=== PATIENT | female | born 1970 | race Caucasian/White ===

== ENCOUNTER 2023-05-05 13:12 | Inpatient (IN) ==
[2023-05-05 13:41] LABS: Basophils # (auto) 0.06 K/uL (0.00-0.20); Basophils % (auto) 0.7 %; Eosinophils % (auto) 1.1 %; Hematocrit (blood only) 43.4 % (37.0-47.0); Hemoglobin 14.7 g/dl (12.0-16.0); Immature Granulocytes # (auto) 0.02 K/uL (0.01-0.20); Immature Granulocytes % (auto) 0.2 %; Lymphocytes # (auto) 3.03 K/uL (1.20-3.40); Lymphocytes % (auto) 33.7 %; Mean Corpuscular Hemoglobin 32.9 pg (25.0-34.0); Mean Corpuscular Hgb Conc 33.9 g/dL (32.0-36.0); Mean Corpuscular Volume 97.1 fL (80.0-100.0); Mean Platelet Volume 10.8 fL (9.4-12.4); Monocytes # (auto) 0.55 K/uL (0.11-0.59); Monocytes % (auto) 6.1 %; Neutrophils # (auto) 5.22 K/uL (1.40-6.50); Neutrophils % (auto) 58.2 %; Platelet Count 266 K/uL (130-400); RDW Coefficient of Variation 15.9 % (11.5-14.5); RDW Standard Deviation 57.5 fL (36.4-46.3); Red Blood Count 4.47 M/uL (4.20-5.40); White Blood Count 8.98 K/ul (4.8-10.8)
[2023-05-05 13:55] LABS: Albumin Globulin Ratio 1.2 (0.9-2); Albumin Level 3.8 gm/dl (3.4-5.0); BUN Creatinine Ratio 10.4 (10-20); Calcium 9.4 mg/dl (8.6-10.3); Creatinine Clr Calc Pharmacy 52.9 ml/min; Est GFR (African American) 77.2 ml/min; Est GFR (Non-African American) 66.6 ml/min; Globulin 3.1 gm/dl (2.5-4.0); Potassium 3.2 mmol/L (3.5-5.1); Total Protein 6.9 gm/dl (6.0-8.3)
[2023-05-05 14:14] LABS: INR 1.2 (0.9-1.1); Partial Thromboplastin Ratio 0.9; Partial Thromboplastin Time 26.2 Seconds (21.0-31.0)
--- NOTE | 2023-05-05 14:16 | XRay Report ---
XR chest 1V not portable HISTORY: 53 years-old Female Chest pain, nonspecific acute shortness breath with chest pain COMPARISON: 04/02/2023 TECHNIQUE: PA view of the chest FINDINGS: Cardiac silhouette is enlarged. Pulmonary vascular congestion with interstitial coarsening. Layering pleural effusions have increased in size from prior. Bibasilar consolidation, progressively worsened on the left. Bones appear grossly intact. IMPRESSION: 1. Cardiomegaly with pulmonary edema. 2. Increased size of the layering pleural effusions with bibasilar consolidation. ACT 112: Negative or not required by law. The above report was generated using voice recognition software. It may contain grammatical, syntax o r spelling errors. Electronically signed by: Rui Victor M.D. 05/05/2023 2:15 PM
--- NOTE | 2023-05-05 14:23 | Emergency Department Note ---
Impression & Plan Acute HFrEF (heart failure with reduced ejection fraction) ED Provider Note NAME: RAMÓN COLLAZO AGE: 53 SEX: F : 1970 ARRIVES VIA: Walk-In INFORMANT: Patient, ED PROVIDER(S): Bonnie Christian MD CHIEF COMPLAINT: Shortness of breath HPI: This is a 53-year-old female presenting for suspected heart failure. Patient was seen here about 1 month ago, and left without being seen. That time she had elevated troponin levels, possible pneumonia on x-ray. She then presented to [facility] emergency department where she received CT of the chest with no PE but did show pulmonary vascular congestion. She treated with antibiotics [facility] emergency department and discharge. She then saw primary care who noticed that she had shortness of breath, edema and chest tightness. She had BNP that was elevated at 34,000, chest x-ray revealing small bilateral pleural effusions started on furosemide 5 mg. General cardiology consulted on emergent echo today. This echo shows severely reduced EF, less than 20%. She states she was sent in by the recording studio intern for this concern. ROS: See above HPI for pertinent positives & negatives. A total of 10 systems reviewed and were otherwise negative. PAST MEDICAL HISTORY: See Below PAST SURGICAL HISTORY: See Below FAMILY HISTORY: See Below SOCIAL HISTORY: See Below HOME MEDICATIONS: See Below ALLERGIES: See Below VITALS: See Below PHYSICAL EXAMINATION: General: resting comfortably in no acute distress Head: Normocephalic and atraumatic Eyes: Normal inspection, extraocular muscles intact Ear, nose, throat: Normal external exam Neck: Normal range of motion Respiratory: Crackles at the bases Cardiovascular: Regular rate/rhythm, no murmur GI: soft, nontender, no guarding or rebound Extremities: nontender, moves all extremities, 2+ pitting edema to bilateral lower extremities Neuro: The patient awake and alert, appropriately conversive, no focal deficits, symmetric faces Skin: Warm, dry, and intact MEDICAL DECISION MAKING: This is a 53-year-old female presenting for suspected heart failure. External records reviewed including Janine Alejandro cardiology note on 05/05 which shows concerns for heart failure. Reviewed external echo report from same date showing LV ejection fraction less than 20%, severe diffuse left ventricular hypokinesis, left ventricle cavity is moderate dilated, concentric left ventricular wall thickening mildly increased, severe tricuspid regurg, moderate mitral regurg, right ventricle is normal in size with normal wall RV function. Patient is tachycardic here however not hypoxic, no shortness of breath at rest, no pleurisy at rest. Patient has had symptoms for about 6 weeks. Low concern for PE as echo does not show any right strain Chest x-ray independently interpreted by me as bilateral pleural effusions, no pneumothorax, no focal consolidations. Patient required admission for her severe severe reduced EF. Triage Nursing notes reviewed. Prior medical records reviewed Vital Signs: reviewed and remarkable for no significant abnormalities Differential diagnosis: Heart failure, ACS, low concern for dissection or PE ER treatment provided: See below Diagnostics interpreted by me: ECG: ECG independently interpreted by me with sinus tachycardia, rate of 120, right axis deviation, normal UT, normal QRS, normal QTc, no ST segment elevations consistent with STEMI criteria, poor baseline, difficult to interpret Cardiac Monitoring: An order was placed for continuous cardiac monitoring. The monitor shows a rate of 105 with sinus rhythm Laboratory studies: As stated above and show below. Imaging studies: See below. Radiographic imaging was reviewed by myself Consultation(s): None Past Med/Surg History Medical History (Updated 05/05/23 @ 19:24 by Bonnie Christian MD) HTN (hypertension) Surgical History (Updated 05/05/23 @ 16:19 by Nahomy Costa PA-C) Hx of ectopic Hx of breast reduction, elective Hx of wisdom tooth extraction Family History (Updated 05/05/23 @ 16:19 by Nahomy Costa PA-C) Father Hypertension HLD (hyperlipidemia) Mother Diabetes Hypertension Rheumatoid arthritis Osteoarthritis Social History (Updated 05/05/23 @ 16:47 by Nahomy Costa PA-C) Smoking Status: Current every day smoker Tobacco Type: Cigars Second Hand Exposure: No; Do You Dip or Chew Tobacco: No; Tobacco Cessation Education Requested by Patient: No Hx Alcohol Use: No Hx Substance Use: No Preferred Language: Urdu 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 Beliefs That Will Affect Care: None Current Living Situation: Spouse Other Information That Helps Us Care for You: No Feels Safe at Home: Yes Safety Concerns: Feels Safe At This Time Assistive Devices: None Allergies Allergies Allergy/AdvReac Type Severity Reaction Status Date / Time Sulfa (Sulfonamide AdvReac Mild Vomiting Unverified 05/05/23 16:25 Antibiotics) Home Meds Home Medications Medication Instructions Recorded Confirmed albuterol sulfate 90 mcg/actuation 2 puff inhalation Q6H PRN SOB 05/05/23 05/05/23 aerosol inhaler benzonatate 200 mg capsule 200 mg PO TID PRN Cough 05/05/23 05/05/23 furosemide 20 mg tablet 20 mg PO QAM 05/05/23 05/05/23 Results & Data (ED) Vital Signs Vital Signs - 24 hr 05/05/23 13:15 05/05/23 14:12 05/05/23 14:16 Temperature 36.5 C Temperature Source Temporal Artery Scan Pulse Rate 117 H 109 H Pulse Rate [Apical] 109 H Respiratory Rate 20 22 Respiratory Effort / Characteristics Non-Labored Spontaneous Respiratory Depth Normal Blood Pressure 142/98 H Blood Pressure [Right Arm] 141/105 H Blood Pressure Mean 112 Blood Pressure Mean [Right Arm] 117 Pulse Oximetry 99 97 Oxygen Delivery Method Room Air Room Air Sepsis Recent Fever Within 48 Hours No Sepsis New/Unexplained Change in Mental Status No Sepsis Action Taken by Nursing No Action Required 05/05/23 14:16 05/05/23 14:16 Temperature Temperature Source Pulse Rate 109 H Pulse Rate [Apical] Respiratory Rate 22 Respiratory Effort / Characteristics Respiratory Depth Blood Pressure Blood Pressure [Right Arm] Blood Pressure Mean Blood Pressure Mean [Right Arm] Pulse Oximetry 97 97 Oxygen Delivery Method Room Air Room Air Sepsis Recent Fever Within 48 Hours Sepsis New/Unexplained Change in Mental Status Sepsis Action Taken by Nursing Laboratory Data 05/05/23 13:22 05/05/23 13:22 Lab Results 05/05/23 Range/Units 13:22 WBC 8.98 (4.8-10.8) K/ul RBC 4.47 (4.20-5.40) M/uL Hgb 14.7 (12.0-16.0) g/dl Hct 43.4 (37.0-47.0) % MCV 97.1 (80.0-100.0) fL MCH 32.9 (25.0-34.0) pg MCHC 33.9 (32.0-36.0) g/dL RDW Std Deviation 57.5 H (36.4-46.3) fL RDW Coeff of Bert 15.9 H (11.5-14.5) % Plt Count 266 (130-400) K/uL MPV 10.8 (9.4-12.4) fL Immature Gran % (Auto) 0.2 % Neut % (Auto) 58.2 % Lymph % (Auto) 33.7 % Johnston % (Auto) 6.1 % Eos % (Auto) 1.1 % Baso % (Auto) 0.7 % Neut # (Auto) 5.22 (1.40-6.50) K/uL Lymph # (Auto) 3.03 (1.20-3.40) K/uL Johnston # (Auto) 0.55 (0.11-0.59) K/uL Eos # (Auto) 0.10 (0.00-0.50) K/uL Baso # (Auto) 0.06 (0.00-0.20) K/uL Immature Gran # (Auto) 0.02 (0.01-0.20) K/uL PT 13.0 H (9.0-12.0) Seconds INR 1.2 H (0.9-1.1) APTT 26.2 (21.0-31.0) Seconds PTT Ratio 0.9 Sodium 133 L (136-145) mmol/L Potassium 3.2 L (3.5-5.1) mmol/L Chloride 94 L (98-107) mmol/L Carbon Dioxide 30 (21-32) mmol/L Anion Gap 9 (3-11) BUN 10 (6-23) mg/dl Creatinine 0.96 (0.6-1.2) mg/dl Est Cr Clr Drug Dosing 52.9 ml/min Est GFR ( Amer) 77.2 ml/min Est GFR (Non-Af Amer) 66.6 ml/min BUN/Creatinine Ratio 10.4 (10-20) Glucose 102 H (70-99(Fasting)) mg/dl Calcium 9.4 (8.6-10.3) mg/dl Total Bilirubin 1.0 (0.2-1.0) mg/dl AST 16 (13-39) U/L ALT 11 (7-52) U/L Alkaline Phosphatase 98 (34-104) U/L Troponin I High Sens 26.4 H (0-14) pg/ml B-Natriuretic Peptide 3939 H (0-100) pg/ml Total Protein 6.9 (6.0-8.3) gm/dl Albumin 3.8 (3.4-5.0) gm/dl Globulin 3.1 (2.5-4.0) gm/dl Albumin/Globulin Ratio 1.2 (0.9-2) Administered Medications Discontinued Medications Furosemide (Furosemide 40 Mg/4 Ml Vial) 40 mg IV NOW STA Stop: 05/05/23 15:53 Last Admin: 05/05/23 16:52 Dose: 40 mg Documented By: MITZY Co-signed By: AM Potassium Chloride (Potassium Chloride Crtab 20 Meq Tabcr) 40 meq PO NOW STA Stop: 05/05/23 15:07 Last Admin: 05/05/23 15:09 Dose: 40 meq Documented By: NRB Imaging Data Radiologist's Impression: Chest X-Ray 05/05/23 13:18 XR chest 1V not portable HISTORY: 53 years-old Female Chest pain, nonspecific acute shortness breath with chest pain COMPARISON: 04/02/2023 TECHNIQUE: PA view of the chest FINDINGS: Cardiac silhouette is enlarged. Pulmonary vascular congestion with interstitial coarsening. Layering pleural effusions have increased in size from prior. Bibasilar consolidation, progressively worsened on the left. Bones appear grossly intact. IMPRESSION: 1. Cardiomegaly with pulmonary edema. 2. Increased size of the layering pleural effusions with bibasilar consolidation. ACT 112: Negative or not required by law. The above report was generated using voice recognition software. It may contain grammatical, syntax or spelling errors. Electronically signed by: Rui Victor M.D. 05/05/2023 2:15 PM Discharge Plan Visit Data Chief Complaint: Shortness of Breath/Dyspnea Stated Complaint: FLUID BUILD UP, SOB, EDEMA LEGS ED Provider: Bonnie Christian Discharge Problem: Acute HFrEF (heart failure with reduced ejection fraction) Patient Disposition: Admitted As Inpatient Discharge Instructions Interventions: ED Discharge Assessment Last Done: 05/05/23 16:55
[2023-05-05 14:50] LABS: Troponin I High Sensitivity 26.4 pg/ml (0-14)
[2023-05-05] MEDS ORDERED: POTASSIUM CHLORIDE CRTAB 20 MEQ TABCR PO STA (15:06)
--- NOTE | 2023-05-05 15:13 | Electrocardiogram Report ---
Test Reason : Blood Pressure : / mmHG Vent. Rate : 120 BPM Atrial Rate : 120 BPM P-R Int : 134 ms QRS Dur : 078 ms QT Int : 316 ms P-R-T Axes : 000 140 085 degrees QTc Int : 446 ms Sinus tachycardia Right axis deviation Possible Old Anterior infarct (cited on or before 02-APR-2023) Nonspecific T wave abnormality Lateral leads Abnormal ECG When compared with ECG of 02-APR-2023 17:13, No significant change Confirmed by Samy Garcia ([id number]) on 05/05/2023 3:13:24 PM Referred By: Confirmed By:Samy Garcia
[2023-05-05] MEDS ORDERED: FUROSEMIDE 40 MG/4 ML VIAL IV STA (15:52)
--- NOTE | 2023-05-05 16:21 | History & Physical Report ---
Date of Service May 05, 2023 Assessment & Plan (1) Acute HFrEF (heart failure with reduced ejection fraction): (2) Tobacco abuse disorder: (3) HTN (hypertension): (4) Hypokalemia: Plan This is a 53-year-old female who has a significant past medical history of chronic tobacco use who presents to ED at the referral of cardiology. 6 weeks of worsened GEORGE and lower extremity edema outpatient echo: EF < 20%, severe diffuse left ventricular hypokinesis, right ventricular cavity moderately dilated, left atrium moderately enlarged, moderate MR, severe TR, dilated IVC with reduced collapsibility Acute HFrEF HTN Elevated Troponin - demand ischemia admit to PCU consult cardiology give lasix 40mg IV x 1 now and then daily daily weights, strict intake/output FR to 1800ml will hold off on further guideline directed therapies for acute HFrEF at this time until volume status more optimized currently tachycardiac which likely is physiologic in setting of reduced EF TSH obtain in OP setting elevated at 8, but free T4 normal a1c 6.3, lipid panel trig 122, total chol 149, LDL 96 NPO in a.m. in event procedure warranted Pre diabetes a1c in outpatient setting 6.3 diet/lifestyle modifications Chronic tobacco abuse last smoked yesterday, hoping to abstain continue to encourage cessation DVT ppx: Lovenox x 1 this evening, will not ordered schedule until determine if pt to undergo cardiac cath in a.m., further chemical prophylaxis to be determined by rounding provider in a.m. FULL CODE PCP: Nilton Tee - pt has not yet established care with her so she will need close f/u as outpatient Dispo: PCU History of Present Illness Chief Complaint: Referred by cardiology, GEORGE x 6 weeks. Primary Care Provider: Crescencio Lou MD This is a 53-year-old female who has a significant past medical history of chronic tobacco use who presents to ED at the referral of cardiology. Prior to her current recent medical events she has not followed with a primary care provider. She has smoked on and off for the last 30 years. She also drinks alcohol approximately 2 nights weekly. She denies any illicit drug use. She was seen and evaluated in the ED on 04/02/2023 secondary to cough, chest discomfort and shortness of breath. Patient had chest x-ray and blood work performed but left AGAINST MEDICAL ADVICE due to long wait times. During this evaluation patient had a mildly elevated troponin, chest x-ray concerning for cardiomegaly, pulmonary vascular congestion and she had a mild leukocytosis. There was also possible concern for pneumonia. ED provider contacted patient and prescribed her course of cephalosporin and doxycycline. She has completed 2 courses of antibiotics. She also was seen at [facility] ER in [place] approximately 2 weeks later. Per cardiology report records were reviewed, D- dimer was elevated and she underwent chest CT which was negative for PE but did demonstrate cardiomegaly and bilateral pleural effusions. At this point time she was again treated with antibiotics. Patient does not provide much history as she states, "you can refer to my records I have already been over this." Per records from her cardiology visit today she has complained of shortness of breath for the last 6 weeks. She has a chronic cough and did not think anything of this due to smoking but this has also worsened. She also started coughing up blood. In the ED she also has been having increased lower extremity swelling. She denies any orthopnea, PND or weight change. She recently has been trying to limit her sodium intake. She denies any prior history of any cardiac disease, although she was told many years ago she had high blood pressure. She has never taken any medication for this. She does monitor her blood pressure at home and typically is between 140s and 160s although she thinks her blood pressure cuff may be off. She was recently prescribed Lasix 20 mg daily prior to cardiac consultation being performed. She went for cardiology consultation today and echocardiogram was performed which revealed an LVEF of less than 20%, severe diffuse left ventricular hypokinesis, left ventricular cavity mildly dilated, left atrium moderately dilated, moderate MR and severe tricuspid regurg is present. She states ever since taking the Lasix 20 mg daily she has noted slight decrease in her leg swelling. She has not been taking any potassium with her Lasix. She denies any recent viral illness or traumatic life event. Significant other is at beside who also helps elicit hx. in ED patient was hemodynamically stable although significantly hypertensive. Initial troponin elevated at 26. She was mildly hypokalemic with potassium of 3.2. Outpatient lab work from [facility] was reviewed. BNP was 34,317, triglyceride 122, cholesterol 149, HDL 29, LDL 96, BUN 16, creatinine 1.1, A1c 6.3, TSH 8.44 with normal T4free. Her last tobacco use was yesterday. At rest she currently feels fine. She denies SOB at rest, chest pain, f/c/s, lightheaded, dizziness, n/v/d, abd pain. Allergies Allergy/AdvReac Type Severity Reaction Status Date / Time Sulfa (Sulfonamide AdvReac Mild Vomiting Unverified 05/05/23 16:25 Antibiotics) Home Medications Medication Instructions Recorded Confirmed Type albuterol sulfate 90 mcg/actuation 2 puff inhalation Q6H PRN SOB 05/05/23 05/05/23 History aerosol inhaler benzonatate 200 mg capsule 200 mg PO TID PRN Cough 05/05/23 05/05/23 History furosemide 20 mg tablet 20 mg PO QAM 05/05/23 05/05/23 History Past Med/Surg History Medical History (Updated 05/05/23 @ 19:24 by Bonnie Christian MD) HTN (hypertension) Surgical History (Updated 05/05/23 @ 16:19 by Nahomy oCsta PA-C) Hx of ectopic Hx of breast reduction, elective Hx of wisdom tooth extraction Family History (Updated 05/05/23 @ 16:19 by Nahomy Costa PA-C) Father Hypertension HLD (hyperlipidemia) Mother Diabetes Hypertension Rheumatoid arthritis Osteoarthritis Social History (Updated 05/05/23 @ 16:47 by Nahomy Costa PA-C) Smoking Status: Current every day smoker Tobacco Type: Cigars Second Hand Exposure: No; Do You Dip or Chew Tobacco: No; Tobacco Cessation Education Requested by Patient: No Hx Alcohol Use: No Hx Substance Use: No Preferred Language: Spanish [employer]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 Beliefs That Will Affect Care: None Current Living Situation: Spouse Other Information That Helps Us Care for You: No Feels Safe at Home: Yes Safety Concerns: Feels Safe At This Time Assistive Devices: None Review of Systems Review of Systems: All systems reviewed & are unremarkable except as noted in HPI & below Physical Exam Physical Exam: Constitutional: WD/WN, vitals as above, NAD, sitting up in bed, pleasant, conversing easily Head: Normocephalic, Atraumatic Eyes: PERRL, conjunctivae normal, anicteric sclerae ENMT: external ear and nose normal, oropharynx normal Neck: trachea midline, no thyromegaly normal visual inspection Respiratory: normal respiratory effort, lungs clear to auscultation but decreased with crackles and b/l bases, no wheeze, or rhonchi. Normal insp/exp effort, no accessory muscle use Cardiovascular: RRR, no murmur, +2 pretibial and ankle edema, no venous stasis changes Vessels: + JVD or carotid bruit , no hepatojugular reflux noted Chest: normal inspection of chest Abdomen: normal bowel sounds, soft, nontender, no hepatosplenomegaly Musculoskeletal: no cyanosis or clubbing, extremities motor strength 5/5 Skin: no rashes, warm and dry normal turgor Neurologic: PERRL, EOMI, accommodation nl, no face palsy, no dysarthria CN's II-XI intact bilaterally and moves all extremities Psychiatric: A+Ox3, euthymic affect Lymphatic: no cervical or axillary lymphadenopathy : deferred Results & Data Results & Data Vital Signs (Past 12 Hours) Vital Signs Temp Pulse Pulse Resp BP BP Pulse Ox 05/05/23 14:16 109 H 22 97 05/05/23 14:16 97 05/05/23 14:16 109 H 22 141/105 H 97 05/05/23 14:12 109 H 05/05/23 13:15 36.5 C 117 H 20 142/98 H 99 O2 Del Method 05/05/23 14:16 Room Air 05/05/23 14:16 Room Air 05/05/23 14:16 Room Air 05/05/23 14:12 05/05/23 13:15 Room Air Diagnostic Findings Chest X-Ray 05/05/23 13:18 XR chest 1V not portable HISTORY: 53 years-old Female Chest pain, nonspecific acute shortness breath with chest pain COMPARISON: 04/02/2023 TECHNIQUE: PA view of the chest FINDINGS: Cardiac silhouette is enlarged. Pulmonary vascular congestion with interstitial coarsening. Layering pleural effusions have increased in size from prior. Bibasilar consolidation, progressively worsened on the left. Bones appear grossly intact. IMPRESSION: 1. Cardiomegaly with pulmonary edema. 2. Increased size of the layering pleural effusions with bibasilar consolidation. ACT 112: Negative or not required by law. The above report was generated using voice recognition software. It may contain grammatical, syntax or spelling errors. Electronically signed by: Rui Victor M.D. 05/05/2023 2:15 PM Medications Administered Medication List Discontinued Medications Potassium Chloride (Potassium Chloride Crtab 20 Meq Tabcr) 40 meq PO NOW STA Stop: 05/05/23 15:07 Last Admin: 05/05/23 15:09 Dose: 40 meq Documented By: NRB ECG Additional Comments: ST HR 120bpm, RAD, nonspecific T wave in lateral leads, no change compared to 04/02/23. COVID-19 Results Results COVID-19 Adm Lab Results: RBC 4.47 M/uL (4.20-5.40) 05/05/23 WBC 8.98 K/ul (4.8-10.8) 05/05/23 Hgb 14.7 g/dl (12.0-16.0) 05/05/23 Hct 43.4 % (37.0-47.0) 05/05/23 Plt Count 266 K/uL (130-400) 05/05/23 Neutrophils (%) (Auto) 58.2 % 05/05/23 Lymphocytes (%) (Auto) 33.7 % 05/05/23 Monocytes # (Auto) 0.55 K/uL (0.11-0.59) 05/05/23 Eosinophils # (Auto) 0.10 K/uL (0.00-0.50) 05/05/23 Immature Granulocyte % (Auto) 0.2 % 05/05/23 Neutrophils # (Auto) 5.22 K/uL (1.40-6.50) 05/05/23 Lymphocytes # (Auto) 3.03 K/uL (1.20-3.40) 05/05/23 Monocytes # (Auto) 0.55 K/uL (0.11-0.59) 05/05/23 Eosinophils # (Auto) 0.10 K/uL (0.00-0.50) 05/05/23 Basophils # (Auto) 0.06 K/uL (0.00-0.20) 05/05/23 Immature Granulocyte # (Auto) 0.02 K/uL (0.01-0.20) 3 Na 133 mmol/L (136-145) L 05/05/23 K 3.2 mmol/L (3.5-5.1) L 05/05/23 Cl 94 mmol/L (98-107) L 05/05/23 CO2 30 mmol/L (21-32) 05/05/23 Anion Gap 9 (3-11) 05/05/23 BUN 10 mg/dl (6-23) 05/05/23 Creatinine 0.96 mg/dl (0.6-1.2) 05/05/23 BUN/Creatinine Ratio 10.4 (10-20) 05/05/23 Glucose Level 102 mg/dl (70-99(Fasting)) H 05/05/23 Ca 9.4 mg/dl (8.6-10.3) 05/05/23 Total Bilirubin 1.0 mg/dl (0.2-1.0) 05/05/23 AST/SGOT 16 U/L (13-39) 05/05/23 ALT/SGPT 11 U/L (7-52) 05/05/23 Alkaline Phosphatase 98 U/L (34-104) 05/05/23 Total Protein 6.9 gm/dl (6.0-8.3) 05/05/23 Albumin 3.8 gm/dl (3.4-5.0) 05/05/23 Globulin 3.1 gm/dl (2.5-4.0) 05/05/23 Albumin/Globulin Ratio 1.2 (0.9-2) 05/05/23 PTT 26.2 Seconds (21.0-31.0) 05/05/23 INR 1.2 (0.9-1.1) H 05/05/23 Chest X-Ray 05/05/23 Code Status & VTE Plan Code Status FULL CODE VTE Prophylaxis Plan VTE Prophylaxis will be ordered: Yes Supervising Physician Co-Signing Physician Notes I have seen and examined the patient and have discussed the case with the provider above. I agree with the assessment and plan as stated. 53-year-old female smoker presents with new onset HFrEF. She is symptomatic with minimal exertion and reports an improvement after starting Lasix approximately 9 days ago. She still reports chest discomfort cough shortness of breath. She feels she has recovered from her recent bout of pneumonia. On exam she appears well-developed and in no acute distress. She moves around the bed easily on her own. She has a blood pressure within normal range but is mildly tachycardic in the low 100s. She is oxygenating well on room air and has no conversational dyspnea. She has no gross focal neuromuscular deficits. Lungs are clear to auscultation throughout with some decreased airflow at the bases bilaterally. Cardiac exam reveals regular rate and rhythm with no evidence of murmur. She has peripheral edema, 2+ to the knees. JVD is present. Abdomen is soft nontender nondistended. Chest x-ray reveals cardiomegaly with pulmonary edema and layering pleural effusions with bibasilar consolidation. CBC is within normal limits, BNP reveals sodium 133, potassium 3.2, chloride 94, CO2 30. Renal function is normal liver panel is unremarkable. Glucose is 102. Highly sensitive troponin is 26.4--> 25.2. BNP is 3939. EKG reveals sinus tachycardia with right axis deviation and a nonspecific T wave abnormality in the lateral leads. Recent external echocardiogram reveals LVEF less than 20% with severe diffuse left ventricular hypokinesis dilated LV cavity, concentric left ventricular wall thickening, severe tricuspid regurgitation, moderate mitral regurgitation, normal RV function. She was treated with potassium 40 mEq p.o. followed by 40 mg IV of Lasix. 1. Acute HFrEF-began intravenous diuretic therapy to optimize volume status. Continue daily weights to monitor response. We will not start beta-blockers despite tachycardia given poor cardiac output/stroke-volume. Defer starting RAAS inhibitor, mineralocorticoid receptor antagonist, and SGLT2 inhibitor for a few days. Appreciate cardiology assistance with management. 2. Smoking-strongly discouraged. DO Andrew
[2023-05-05] MEDS ORDERED: ONDANSETRON INJ 2 MG/ML 2 ML VIAL IV PRN (17:13)
[2023-05-05] MEDS ORDERED: ALUMINUM/MAGNESIUM SUSP 30 ML UDC PO PRN (17:13)
[2023-05-05] MEDS ORDERED: MAGNESIUM HYDROXIDE SUSP 30 ML UDC PO PRN (17:13)
[2023-05-05] MEDS ORDERED: POLYETHYLENE (MIRALAX) 17 GM PACK PO PRN (17:13)
[2023-05-05] MEDS ORDERED: ACETAMINOPHEN 325 MG TAB PO PRN (17:13)
[2023-05-05] MEDS ORDERED: POTASSIUM CHLORIDE CRTAB 20 MEQ TABCR PO ONE (22:00)
[2023-05-05] MEDS ORDERED: ENOXAPARIN INJ 40 MG/0.4 ML SYR SQ ONE (22:00)
[2023-05-06 04:15] LABS: Hematocrit (blood only) 37.7 % (37.0-47.0); Hemoglobin 12.6 g/dl (12.0-16.0); Mean Corpuscular Hemoglobin 32.4 pg (25.0-34.0); Mean Corpuscular Hgb Conc 33.4 g/dL (32.0-36.0); Mean Corpuscular Volume 96.9 fL (80.0-100.0); Mean Platelet Volume 11.1 fL (9.4-12.4); Platelet Count 218 K/uL (130-400); RDW Coefficient of Variation 15.6 % (11.5-14.5); RDW Standard Deviation 55.1 fL (36.4-46.3); Red Blood Count 3.89 M/uL (4.20-5.40); White Blood Count 7.18 K/ul (4.8-10.8)
[2023-05-06 04:29] LABS: BUN Creatinine Ratio 10.1 (10-20); Calcium 8.6 mg/dl (8.6-10.3); Creatinine Clr Calc Pharmacy 57.1 ml/min; Est GFR (African American) 84.6 ml/min; Magnesium 1.8 mg/dl (1.7-2.4); Potassium 3.6 mmol/L (3.5-5.1)
--- NOTE | 2023-05-06 08:13 | Electrocardiogram Report ---
Test Reason : Blood Pressure : / mmHG Vent. Rate : 095 BPM Atrial Rate : 095 BPM P-R Int : 136 ms QRS Dur : 088 ms QT Int : 386 ms P-R-T Axes : 047 019 080 degrees QTc Int : 485 ms Normal sinus rhythm Left atrial enlargement Possible Old Anterior infarct (cited on or before 02-APR-2023) Nonspecific T wave abnormality Lateral leads Abnormal ECG When compared with ECG of 05-MAY-2023 13:24, QRS axis Shifted left Nonspecific T wave abnormality, improved in Lateral leads Confirmed by Samy Garcia ([id number]) on 05/06/2023 8:13:16 AM Referred By: REFERRED SELF Confirmed By:Samy Garcia
[2023-05-06] MEDS ORDERED: POTASSIUM CHLORIDE CRTAB 20 MEQ TABCR PO SCH (09:00)
[2023-05-06] MEDS ORDERED: FUROSEMIDE 40 MG/4 ML VIAL IV SCH (09:00)
--- NOTE | 2023-05-06 09:34 | Cardiology Progress Note ---
Date of Service May 06, 2023 Assessment & Plan Admission and Anticipated Discharge Date Admission Date: May 05, 2023 Supervising Physician Co-Signing Physician Notes Attending Staff: Pt seen and evaluated with [facility] staff Concur with observations and plans 53 yo woman presenting with progressive exertional dyspnea and LE Edema Several recent hospitalizations for decompensated heart failure Patient was evaluated in [facility] ECHOcardiogram - LVEF 20%, LV mildly dilated, Moderate MR/Severe TR Pt noted to be markedly dyspneic - referred to [facility] ED Etiology of Cardiomyopathy unknown Dx: Acute on chronic combined CHF Plans: * Aggressive KCL repletion * K+ goal 4.5-5 * Start Kdur 40 meq po BID * PM electrolyte check * Mag goal >2 * Please administer 4 gm of Magnesium Sulfate * Start Entresto 24/26 mg po BID * Start Aldactone 25 mg po per day * Lasix 80 mg IV x 1 after Kdur repletion * Plans for coronary angiography + RHC when euvolemic * Check TSH * Check HIV * Check Ferritin * Check Lactate * Check Phosphorus * 1.5 liter fluid restriction/Low Na + Diet * Nutrition eval - protein/calorie malnutrition * Nato Poole Subjective Events overnight: * Diuresis initiated * No NSVT on tele Subjective: * Breathing improved Review of Systems Review of Systems: All systems reviewed & are unremarkable except as noted in HPI & below Physical Exam Physical Exam: Thin woman - breathing improved JVP 15 cmH20 S1S2 2/6 systolic murmur CTA B 2+ LE edema Results & Data Vital Signs (Past 12 Hours) Vital Signs Temp Pulse Pulse Resp BP Pulse Ox O2 Del Method 05/06/23 07:58 36.6 C 104 H 18 132/92 95 Room Air 05/06/23 07:17 95 H 05/06/23 07:06 Room Air 05/06/23 03:39 36.4 C L 94 H 19 113/78 93 Room Air 05/06/23 02:10 36.4 C L 94 H 113/78 93 Room Air 05/05/23 23:19 36.5 C 93 H 19 122/85 92 Room Air 05/05/23 22:00 94 H Laboratory Results Cardiac Enzymes 05/05/23 05/05/23 05/05/23 Range/Units 13:22 15:01 20:46 AST 16 (13-39) U/L Troponin I High Sens 26.4 H 25.2 H 24.4 H (0-14) pg/ml B-Natriuretic Peptide 3939 H (0-100) pg/ml 05/06/23 Range/Units 03:43 AST (13-39) U/L Troponin I High Sens 20.0 H D (0-14) pg/ml B-Natriuretic Peptide (0-100) pg/ml Coagulation 05/05/23 Range/Units 13:22 PT 13.0 H (9.0-12.0) Seconds APTT 26.2 (21.0-31.0) Seconds B-Natriuretic Peptide 3939 H (0-100) pg/ml CBC 05/05/23 05/06/23 Range/Units 13:22 03:43 WBC 8.98 7.18 (4.8-10.8) K/ul RBC 4.47 3.89 L (4.20-5.40) M/uL Hgb 14.7 12.6 (12.0-16.0) g/dl Hct 43.4 37.7 (37.0-47.0) % Plt Count 266 218 (130-400) K/uL Neut # (Auto) 5.22 (1.40-6.50) K/uL Lymph # (Auto) 3.03 (1.20-3.40) K/uL [place] # (Auto) 0.55 (0.11-0.59) K/uL Eos # (Auto) 0.10 (0.00-0.50) K/uL Baso # (Auto) 0.06 (0.00-0.20) K/uL Comprehensive Metabolic Panel 05/05/23 05/06/23 Range/Units 13:22 03:43 Sodium 133 L 136 (136-145) mmol/L Potassium 3.2 L 3.6 (3.5-5.1) mmol/L Chloride 94 L 98 (98-107) mmol/L Carbon Dioxide 30 30 (21-32) mmol/L BUN 10 9 (6-23) mg/dl Creatinine 0.96 0.89 (0.6-1.2) mg/dl Glucose 102 H 81 (70-99(Fasting)) mg/dl Calcium 9.4 8.6 (8.6-10.3) mg/dl AST 16 (13-39) U/L ALT 11 (7-52) U/L Alkaline Phosphatase 98 (34-104) U/L Total Protein 6.9 (6.0-8.3) gm/dl Albumin 3.8 (3.4-5.0) gm/dl Intake and Output 05/05/23 05/06/23 05/06/23 22:59 06:59 14:59 Intake Total 750 / 750 Output Total 1609 Balance -860 / -1260 -400 / -1260 Intake: Oral 750 / 750 Output: Urine 1609 Other: Other Intake Source patient was put on NPO after midnight Weight 61.8 kg 58.8 kg Weight Measurement Method Standing Scale Standing Scale Medications Administered Current Inpatient Medications Acetaminophen (Acetaminophen 325 Mg Tab) 650 mg PO Q4H PRN PRN Reason: Pain or Fever Stop: 06/04/23 17:12 Al Hydrox/Mg Hydrox/Simethicone (Aluminum/Magnesium Susp 30 Ml Udc) 15 ml PO Q4H PRN PRN Reason: Dyspepsia Stop: 06/04/23 17:12 Last Admin: 05/05/23 19:45 Dose: 15 ml Furosemide (Furosemide 40 Mg/4 Ml Vial) 40 mg IV DAILY FRANKLYN Stop: 06/05/23 08:59 Last Admin: 05/06/23 08:14 Dose: 40 mg Magnesium Hydroxide (Magnesium Hydroxide Susp 30 Ml Udc) 30 ml PO Q12H PRN PRN Reason: Constipation Stop: 06/04/23 17:12 Ondansetron HCl (Ondansetron Inj 2 Mg/Ml 2 Ml Vial) 4 mg IV Q6H PRN PRN Reason: Nausea Stop: 06/04/23 17:12 Polyethylene Glycol (Polyethylene (Miralax) 17 Gm Pack) 17 gm PO DAILY PRN PRN Reason: Constipation Stop: 06/04/23 17:12 Potassium Chloride (Potassium Chloride Crtab 20 Meq Tabcr) 20 meq PO QAM [facility] Stop: 06/05/23 08:59 Last Admin: 05/06/23 08:14 Dose: 20 meq
[2023-05-06] MEDS: SPIRONOLACTONE 25 MG TAB PO SCH (11:00)
[2023-05-06] MEDS: VALSARTAN/SACUBITRIL 26/24MG TAB PO SCH ×2 (11:01→19:43)
[2023-05-06] MEDS: MAGNESIUM SULFATE / D5W 1 GM/100 ML BAG IV SCH ×4 (11:01→17:03)
[2023-05-06] MEDS: POTASSIUM CHLORIDE CRTAB 20 MEQ TABCR PO SCH ×2 (11:01→19:43)
[2023-05-06 15:39] LABS: Calcium 9.1 mg/dl (8.6-10.3); Magnesium 2.7 mg/dl (1.7-2.4); Potassium 3.7 mmol/L (3.5-5.1)
[2023-05-06 15:44] LABS: BUN Creatinine Ratio 11.2 (10-20); Creatinine Clr Calc Pharmacy 46.4 ml/min; Est GFR (African American) 67.7 ml/min; Est GFR (Non-African American) 58.4 ml/min
--- NOTE | 2023-05-06 18:05 | Hospitalist Progress Note ---
Date of Service May 06, 2023 Assessment & Plan (1) Acute HFrEF (heart failure with reduced ejection fraction): (2) Tobacco abuse disorder: (3) HTN (hypertension): (4) Hypokalemia: Plan per previous attending notes with addendum: This is a 53-year-old female who has a significant past medical history of chronic tobacco use who presents to ED at the referral of cardiology. 6 weeks of worsened GEORGE and lower extremity edema outpatient echo: EF < 20%, severe diffuse left ventricular hypokinesis, right ventricular cavity moderately dilated, left atrium moderately enlarged, moderate MR, severe TR, dilated IVC with reduced collapsibility Acute HFrEF HTN Elevated Troponin - demand ischemia admit to PCU consult cardiology give lasix 40mg IV x 1 now and then daily daily weights, strict intake/output FR to 1800ml will hold off on further guideline directed therapies for acute HFrEF at this time until volume status more optimized currently tachycardiac which likely is physiologic in setting of reduced EF TSH obtain in OP setting elevated at 8, but free T4 normal a1c 6.3, lipid panel trig 122, total chol 149, LDL 96 NPO in a.m. in event procedure warranted 05/06 diuresis in progress with Lasix IV, Spironolactone Entresto started Pre diabetes a1c in outpatient setting 6.3 diet/lifestyle modifications Chronic tobacco abuse last smoked yesterday, hoping to abstain continue to encourage cessation DVT ppx: Lovenox FULL CODE PCP: Nilton Tee - pt has not yet established care with her so she will need close f/u as outpatient Dispo: anticipate d/c home when medically stable Admission and Anticipated Discharge Date Admission Date: May 05, 2023 Subjective ff up for CHF, etc seen resting in bed, sitting up comfortable states she feels better today than yesterday breathing is improving less leg swelling no chest pain, dyspnea, palpitations, dizziness no other new symptoms Review of Systems Review of Systems: all noted and negative except for above Physical Exam Physical Exam: General- oriented x 3, not in distress, speaks in sentences with no effort or accessory muscle use Eyes- anicteric Neck- no JVD Lungs- mild rales at the bases Heart- normal rate, regular rhythm; no murmurs Abdomen- normal bowel sounds, nondistended, soft, nontender Extremities- grade 1 lower leg edema, no calf tenderness Neuro- alert, oriented x 3; no gross focal neurologic deficits Skin- warm & dry Results & Data Results & Data Vital Signs (Past 12 Hours) Vital Signs Temp Pulse Pulse Resp BP Pulse Ox O2 Del Method 05/06/23 15:11 36.4 C L 99 H 18 119/85 92 Room Air 05/06/23 11:52 36.7 C 103 H 18 139/99 92 Room Air 05/06/23 07:58 36.6 C 104 H 18 132/92 95 Room Air 05/06/23 07:17 95 H 05/06/23 07:06 Room Air all noted and reviewed including below
[2023-05-06] MEDS: ENOXAPARIN INJ 40 MG/0.4 ML SYR SQ SCH (19:41)
[2023-05-07] MEDS ORDERED: FUROSEMIDE 40 MG/4 ML VIAL IV SCH (09:00)
--- NOTE | 2023-05-07 09:04 | Cardiology Progress Note ---
Date of Service May 07, 2023 Assessment & Plan Admission and Anticipated Discharge Date Admission Date: May 05, 2023 Supervising Physician Co-Signing Physician Notes Attending Staff: Pt seen and evaluated with [facility] staff Concur with observations and plans 53 yo woman presenting with progressive exertional dyspnea and LE Edema Several recent hospitalizations for decompensated heart failure Patient was evaluated in [facility] ECHOcardiogram - LVEF 20%, LV mildly dilated, Moderate MR/Severe TR Pt noted to be markedly dyspneic - referred to [facility] ED Etiology of Cardiomyopathy unknown Dx: Acute on chronic combined CHF Plans: * Aggressive KCL repletion * K+ goal 4.5-5 * Increase Kdur to 40 meq po TID * PM electrolyte check * Mag goal >2 * Please administer 2 gm of Magnesium Sulfate * Continue Entresto 24/26 mg po BID * Continue Aldactone 25 mg po per day * Start Jardiance 10 mg po per day * Lasix 80 mg IV BID * Nato Yusuf * Plans for coronary angiography + RHC when euvolemic * Check TSH * Check HIV * Check Ferritin * Lactate - 2.2; recheck Lactate * Check Phosphorus * 1.5 liter fluid restriction/Low Na + Diet * Nutrition eval - protein/calorie malnutrition * NPO past MN for Left and Right Heart Cath * If CI <2.2, will discuss next moves * Patient may be straddling Stage D CHF. Hilario Poole Subjective Events overnight: * None reported * No NSVT Subjective: * Improved Breathing Review of Systems Review of Systems: All systems reviewed & are unremarkable except as noted in HPI & below Physical Exam Physical Exam: Thin woman - breathing improved JVP 12 cmH20 S1S2 2/6 systolic murmur CTA B 1+ LE edema Results & Data Vital Signs (Past 12 Hours) Vital Signs Temp Pulse Resp BP Pulse Ox O2 Del Method 05/07/23 07:40 36.5 C 93 H 16 114/75 92 Room Air 05/07/23 03:05 36.8 C 87 16 108/73 92 Room Air 05/06/23 23:02 36.4 C L 88 18 103/72 94 Room Air Laboratory Results Comprehensive Metabolic Panel 05/06/23 Range/Units 15:00 Sodium 138 (136-145) mmol/L Potassium 3.7 (3.5-5.1) mmol/L Chloride 96 L (98-107) mmol/L Carbon Dioxide 35 H (21-32) mmol/L BUN 12 (6-23) mg/dl Creatinine 1.07 (0.6-1.2) mg/dl Glucose 107 H (70-99(Fasting)) mg/dl Calcium 9.1 (8.6-10.3) mg/dl Intake and Output 05/06/23 05/07/23 05/07/23 22:59 06:59 14:59 Intake Total 706.667 / 1506.667 Output Total 300 / 1900 500 / 1900 Balance 406.667 / -393.333 -500 / -393.333 Intake: IV 286.667 / 386.667 Magnesium Sulfate / D5w 1 gm In 286.667 / 386.667 100 ml @ 50 mls/hr IV Q2H [facility] Rx#:[id number] Oral 420 / 1120 Output: Urine 300 / 1900 500 / 1900 # Bowel Movements 0 / 0 0 / 0 Other: Other Intake Source sips # Unmeasured Voids 2 1 Weight 58.196 kg Weight Measurement Method Standing Scale Medications Administered Current Inpatient Medications Acetaminophen (Acetaminophen 325 Mg Tab) 650 mg PO Q4H PRN PRN Reason: Pain or Fever Stop: 06/04/23 17:12 Al Hydrox/Mg Hydrox/Simethicone (Aluminum/Magnesium Susp 30 Ml Udc) 15 ml PO Q4H PRN PRN Reason: Dyspepsia Stop: 06/04/23 17:12 Last Admin: 05/05/23 19:45 Dose: 15 ml Enoxaparin Sodium (Enoxaparin Inj 40 Mg/0.4 Ml Syr) 40 mg SQ Q24H FRANKLYN Stop: 06/05/23 18:59 Last Admin: 05/06/23 19:41 Dose: 40 mg Furosemide (Furosemide 40 Mg/4 Ml Vial) 80 mg IV DAILY [facility] Stop: 06/06/23 08:59 Magnesium Hydroxide (Magnesium Hydroxide Susp 30 Ml Udc) 30 ml PO Q12H PRN PRN Reason: Constipation Stop: 06/04/23 17:12 Ondansetron HCl (Ondansetron Inj 2 Mg/Ml 2 Ml Vial) 4 mg IV Q6H PRN PRN Reason: Nausea Stop: 06/04/23 17:12 Polyethylene Glycol (Polyethylene (Miralax) 17 Gm Pack) 17 gm PO DAILY PRN PRN Reason: Constipation Stop: 06/04/23 17:12 Potassium Chloride (Potassium Chloride Crtab 20 Meq Tabcr) 40 meq PO BID [facility] Stop: 06/05/23 09:59 Last Admin: 05/06/23 19:43 Dose: 40 meq Sacubitril/Valsartan (Valsartan/Sacubitril 26/24mg Tab) 1 tab PO BID [facility] Stop: 06/05/23 09:59 Last Admin: 05/06/23 19:43 Dose: 1 tab Spironolactone (Spironolactone 25 Mg Tab) 25 mg PO QAM [facility] Stop: 06/05/23 09:59 Last Admin: 05/06/23 11:00 Dose: 25 mg
[2023-05-07] MEDS: POTASSIUM CHLORIDE CRTAB 20 MEQ TABCR PO SCH (09:08)
[2023-05-07] MEDS: SPIRONOLACTONE 25 MG TAB PO SCH (09:08)
[2023-05-07] MEDS: VALSARTAN/SACUBITRIL 26/24MG TAB PO SCH ×2 (09:08→21:37)
[2023-05-07 10:44] LABS: Phosphorus 2.5 mg/dl (2.5-4.9)
[2023-05-07 10:58] LABS: Thyroid Stimulating Hormone 4.852 uIu/ml (0.300-4.500)
[2023-05-07 11:04] LABS: Ferritin 184.2 ng/ml (8-388)
[2023-05-07] MEDS: PANTOprazole 40 MG TAB PO SCH ×2 (11:14→21:37)
[2023-05-07] MEDS: EMPAGLIFLOZIN 10 MG TAB PO SCH (11:14)
[2023-05-07 11:33] LABS: T4 Free Thyroxine 1.21 ng/dl (0.61-1.60)
[2023-05-07] MEDS ORDERED: POTASSIUM CHLORIDE CRTAB 20 MEQ TABCR PO SCH (14:00)
[2023-05-07] MEDS: FUROSEMIDE 40 MG/4 ML VIAL IV SCH (16:59)
[2023-05-07 17:26] LABS: BUN Creatinine Ratio 9.9 (10-20); Calcium 8.7 mg/dl (8.6-10.3); Creatinine Clr Calc Pharmacy 48.9 ml/min; Est GFR (African American) 72.6 ml/min; Est GFR (Non-African American) 62.6 ml/min; Potassium 5.9 mmol/L (3.5-5.1)
[2023-05-07] MEDS: ENOXAPARIN INJ 40 MG/0.4 ML SYR SQ SCH (17:56)
--- NOTE | 2023-05-07 19:16 | Hospitalist Progress Note ---
Date of Service May 07, 2023 Assessment & Plan (1) Acute HFrEF (heart failure with reduced ejection fraction): (2) Tobacco abuse disorder: (3) HTN (hypertension): (4) Hypokalemia: Plan per previous attending notes with addendum: This is a 53-year-old female who has a significant past medical history of chronic tobacco use who presents to ED at the referral of cardiology. 6 weeks of worsened GEORGE and lower extremity edema outpatient echo: EF < 20%, severe diffuse left ventricular hypokinesis, right ventricular cavity moderately dilated, left atrium moderately enlarged, moderate MR, severe TR, dilated IVC with reduced collapsibility Acute HFrEF HTN Elevated Troponin - demand ischemia admit to PCU consult cardiology give lasix 40mg IV x 1 now and then daily daily weights, strict intake/output FR to 1800ml will hold off on further guideline directed therapies for acute HFrEF at this time until volume status more optimized currently tachycardiac which likely is physiologic in setting of reduced EF TSH obtain in OP setting elevated at 8, but free T4 normal a1c 6.3, lipid panel trig 122, total chol 149, LDL 96 NPO in a.m. in event procedure warranted 05/07 diuresing well on Lasix IV, Spironolactone Entresto , Jardiance started for Cardiac cath tomorrow Pre diabetes a1c in outpatient setting 6.3 diet/lifestyle modifications Chronic tobacco abuse last smoked yesterday, hoping to abstain continue to encourage cessation DVT ppx: Lovenox FULL CODE PCP: Nilton Tee - pt has not yet established care with her so she will need close f/u as outpatient Dispo: anticipate d/c home when medically stable Admission and Anticipated Discharge Date Admission Date: May 05, 2023 Subjective ff up for CHF, etc seen resting in bed, sitting up comfortable states she feels ok overall ambulated in the halls had dyspnea while resting no chest pain no other symptoms Review of Systems Review of Systems: all noted and negative except for above Physical Exam Physical Exam: General- oriented x 3, not in distress, speaks in sentences with no effort or accessory muscle use Eyes- anicteric Neck- no JVD Lungs- clear breath sounds bilaterally, no rales/wheezes Heart- normal rate, regular rhythm; no murmurs Abdomen- normal bowel sounds, nondistended, soft, nontender Extremities- mild pretibial edema, no calf tenderness Neuro- alert, oriented x 3; no gross focal neurologic deficits Skin- warm & dry Results & Data Results & Data Vital Signs (Past 12 Hours) Vital Signs Temp Pulse Pulse Resp BP Pulse Ox O2 Del Method 05/07/23 17:00 102 H 05/07/23 15:48 36.3 C L 103 H 20 106/76 95 Room Air 05/07/23 11:26 36.4 C L 102 H 18 111/81 96 Room Air 05/07/23 08:20 89 05/07/23 08:20 Room Air 05/07/23 07:40 36.5 C 93 H 16 114/75 92 Room Air all noted and reviewed including below
[2023-05-08 06:14] LABS: BUN Creatinine Ratio 9.7 (10-20); Calcium 8.8 mg/dl (8.6-10.3); Creatinine Clr Calc Pharmacy 47.9 ml/min; Est GFR (African American) 70.9 ml/min; Est GFR (Non-African American) 61.1 ml/min; Potassium 4.7 mmol/L (3.5-5.1)
[2023-05-08] MEDS: VALSARTAN/SACUBITRIL 26/24MG TAB PO SCH ×2 (08:46→20:00)
[2023-05-08] MEDS: PANTOprazole 40 MG TAB PO SCH ×2 (08:46→20:00)
[2023-05-08] MEDS: EMPAGLIFLOZIN 10 MG TAB PO SCH (08:46)
[2023-05-08] MEDS: SPIRONOLACTONE 25 MG TAB PO SCH (08:46)
[2023-05-08] MEDS: FUROSEMIDE 40 MG/4 ML VIAL IV SCH ×2 (08:54→17:45)
--- NOTE | 2023-05-08 10:42 | Pre Anesthesia Assessment ---
Date of Service May 08, 2023 Pre Sedation Assessment Vital Signs Temp Pulse Pulse Resp BP Pulse Ox O2 Del Method 05/08/23 13:09 36.8 C 93 H 18 128/93 98 Room Air 05/08/23 11:00 36.3 C L 92 H 19 118/84 94 Room Air 05/08/23 07:42 36.3 C L 105 H 20 110/76 95 Room Air 05/08/23 07:31 96 H 05/08/23 07:30 Room Air 05/08/23 03:00 36.9 C 89 16 110/76 92 Room Air 05/08/23 00:46 99 H 05/07/23 23:00 36.4 C L 102 H 16 108/76 91 Room Air 05/07/23 19:00 36.3 C L 100 H 16 112/80 95 Room Air 05/07/23 17:00 102 H 05/07/23 15:48 36.3 C L 103 H 20 106/76 95 Room Air Cardiovascular RRR, no murmur, no edema Additional Comments: sinus bradycardia Respiratory normal respiratory effort, lungs clear to auscultation Pre-Sedation Airway Assessment Smoking Status: Current every day smoker mallampati 3 ASA 3 Notes The planned sedation has been discussed with the patient. Informed Consent was obtained. I have identified the patient, determined the appropriateness of sedation and have assessed the patient immediately prior to the procedure. All medicine(s) and interventions are by my order.
[2023-05-08] MEDS ORDERED: fentaNYL citrate PF 100 MCG/2 ML VIAL ONE (13:30)
[2023-05-08] MEDS ORDERED: MIDAZOLAM HCL 1 MG/ML 2ML VIAL ONE (13:30)
[2023-05-08] MEDS ORDERED: HEPARIN (PORCINE) 1000 UNIT/ML 10 ML (CATH LAB USE ONLY) ONE (13:30)
[2023-05-08] MEDS ORDERED: NITROGLYCERIN/D5W 100MCG/ML 20ML SYR ONE (13:30)
[2023-05-08] MEDS ORDERED: niCARdipine HCL INJ 2.5 MG/ML 10 ML AMP ONE (13:30)
--- NOTE | 2023-05-08 15:06 | Post Anesthesia Assessment ---
Date of Service May 08, 2023 Post Sedation Assessment Vital Signs Temp Pulse Pulse Resp BP Pulse Ox O2 Del Method 05/08/23 13:09 36.8 C 93 H 18 128/93 98 Room Air 05/08/23 11:00 36.3 C L 92 H 19 118/84 94 Room Air 05/08/23 07:42 36.3 C L 105 H 20 110/76 95 Room Air 05/08/23 07:31 96 H 05/08/23 07:30 Room Air 05/08/23 03:00 36.9 C 89 16 110/76 92 Room Air 05/08/23 00:46 99 H 05/07/23 23:00 36.4 C L 102 H 16 108/76 91 Room Air 05/07/23 19:00 36.3 C L 100 H 16 112/80 95 Room Air 05/07/23 17:00 102 H 05/07/23 15:48 36.3 C L 103 H 20 106/76 95 Room Air Recovery Score Activity: Moves 4 extremities Respiration: Deep Breath/Cough Circulation: +/-20% PreAnes Value Consciousness: Fully Awake Oxygen Saturation: > 92% On Room Air Discharge Sedation Level of Care: Fast Track Phase II Post Sedation Plan On clinical assessment, the patient appears to have tolerated the sedation without complications. Patient is recovering as anticipated. Patient will continue to be monitored by nursing and may be discharged when sedation discharge criteria are met per below protocol. Upon Completions of procedure up to 15 minutes continue every 5 minute vital signs and the P.A.R. score; then discharge to a Phase I or Fast Track to Phase II per the following guidelines: * Discharge Patient to appropriate Phase II area if PAR is 8 or greater or return to pre- procedure baseline. The post - procedure orders will be as directed. * If PAR score is less than 8 or not return to pre-procedure baseline then patient will follow Phase I monitoring till PAR is reached for Phase II. The Phase I may be done in procedure room or may call to secure a Phase I area. * If naloxone or flumazenil are used for reversal, hold in Phase I for continued monitoring from when last reversal dose was given for a minimum of 60 minutes or longer pending the nurse and/or physician discretion of patient condition before discharge to Phase II. Please call the Sedation Physician to re-evaluate and complete post-note for discharge to Phase II area. Do NOT discharge from procedure sedation or Phase 1 until post- sedation evaluation note is complete by procedure /sedation MD Sedation Discharge Instructions to be given to the patient at discharge to home. [facility] Procedure Codes (Charges) Indication for Procedure Indication for procedure: cardiomyopathy Sedation/Anesthesia Procedure 1: Sedation/Anesthesia: 30192 Mod Sedation by the same physician;Init15 Min Child Age 5 & Up (initial 15 min, start 1414) Total Sedation Time (minutes): 34 Procedure 2: Sedation/Anesthesia: 64254 Mod Sedation by the same physician; Ea [id number] Minutes (additional 19 min, end 1448) Total Sedation Time (minutes): 34
[2023-05-08 15:14] LABS: HIV 1 RNA PCR Copies/ML NOT DETECTED copies/mL (NOT DETECTED); HIV-1 RNA Log Copies/mL NOT DETECTED (NOT DETECTED)
[2023-05-08 17:10] LABS: iSTAT Arterial Blood Gas HCO3 33 meg/L (19-24); iSTAT Arterial Blood Gas pCO2 48 mmHg (35-46); iSTAT Arterial Blood Gas pH 7.45 (7.35-7.45); iSTAT Arterial Blood Gas pO2 < 32 mmHg (80-95); iSTAT Carbon Dioxide 35 mmol/L (24-31); iSTAT Hematocrit 46 % (37-47); iSTAT Hemoglobin 15.6 g/dl (12.0-16.0); iSTAT Potassium 3.3 mmol/L (3.3-5.0); iSTAT Sodium 141 mmol/L (135-144)
[2023-05-08 17:10] LABS: iSTAT Arterial Blood Gas HCO3 34 meg/L (19-24); iSTAT Arterial Blood Gas pCO2 48 mmHg (35-46); iSTAT Arterial Blood Gas pH 7.46 (7.35-7.45); iSTAT Arterial Blood Gas pO2 < 32 mmHg (80-95); iSTAT Carbon Dioxide 36 mmol/L (24-31); iSTAT Hematocrit 46 % (37-47); iSTAT Hemoglobin 15.6 g/dl (12.0-16.0); iSTAT Potassium 3.6 mmol/L (3.3-5.0); iSTAT Sodium 139 mmol/L (135-144)
--- NOTE | 2023-05-08 17:17 | Cardiology Progress Note ---
Date of Service May 08, 2023 Assessment & Plan (1) Acute HFrEF (heart failure with reduced ejection fraction): (2) Tobacco abuse disorder: Plan Continue IV diuresis with furosemide 80 mg twice daily. Monitor daily weight, fluid balance, electrolytes, and GFR. Supplement potassium as indicated. Continue other evidence-based heart failure therapies including Entresto, spironolactone, and Jardiance. Add Toprol-XL 25 mg daily. 1.5 L fluid restriction, low-sodium diet. Await results of right heart catheterization. No evidence of obstructive CAD per coronary angiography. Admission and Anticipated Discharge Date Admission Date: May 05, 2023 Subjective Patient seen examined the bedside postcardiac catheterization. Coronary artery essentially normal. Awaiting results of right heart cath and hemodynamic assessment. Patient lying supine and feeling well. Denies chest pain or shortness of breath at rest. Fluid balance -4.1 L over the past 24 hours. Stable renal function and electrolytes. Review of Systems Review of Systems: All systems reviewed & are unremarkable except as noted in Subjective Physical Exam Constitutional: well nourished; no acute distress Respiratory: no respiratory distress, no labored breathing and no retractions Auscultation: + rales (Left base); no wheezes Cardiovascular: Rate/Rhythm: regular rate and regular rhythm Heart Sounds: normal S1 and normal S2; no murmur Vessels: + JVD Extremities: no edema Gastrointestinal (Abdomen): Inspection/Auscultation: normal bowel sounds; abdomen not distended Percussion/Palpation: abdomen soft; abdomen nontender, no guarding and abdomen not rigid Neurologic: CN's II-XI intact bilaterally and moves all extremities Results & Data Vital Signs (Past 12 Hours) Vital Signs Temp Pulse Pulse Resp BP Pulse Ox O2 Del Method 05/08/23 15:15 86 14 117/82 95 Room Air 05/08/23 15:10 88 14 121/82 95 Room Air 05/08/23 15:00 88 14 120/88 95 Room Air 05/08/23 14:55 84 14 112/74 95 Room Air 05/08/23 14:50 85 14 120/74 95 Room Air 05/08/23 13:09 36.8 C 93 H 18 128/93 98 Room Air 05/08/23 11:00 36.3 C L 92 H 19 118/84 94 Room Air 05/08/23 07:42 36.3 C L 105 H 20 110/76 95 Room Air 05/08/23 07:31 96 H 05/08/23 07:30 Room Air Laboratory Results Comprehensive Metabolic Panel 05/07/23 05/08/23 Range/Units 16:46 05:19 Sodium 133 L 136 (136-145) mmol/L Potassium 5.9 H D 4.7 D (3.5-5.1) mmol/L Chloride 97 L 98 (98-107) mmol/L Carbon Dioxide 30 31 (21-32) mmol/L BUN 10 10 (6-23) mg/dl Creatinine 1.01 1.03 (0.6-1.2) mg/dl Glucose 96 100 H (70-99(Fasting)) mg/dl Calcium 8.7 8.8 (8.6-10.3) mg/dl Intake and Output 05/08/23 05/08/23 05/08/23 06:59 14:59 22:59 Output Total 1750 / 3500 1750 / 3500 Balance -1750 / -3500 -1750 / -3500 Output: Urine 1750 / 3500 1750 / 3500 Other: Other Intake Source NPO # Unmeasured Voids 1 Weight 58.2 kg Weight Measurement Method Standing Scale
--- NOTE | 2023-05-08 18:06 | Hospitalist Progress Note ---
Date of Service May 08, 2023 delayed entry date of service noted above Assessment & Plan (1) Acute HFrEF (heart failure with reduced ejection fraction): (2) Tobacco abuse disorder: (3) HTN (hypertension): (4) Hypokalemia: Plan per previous attending notes with addendum: This is a 53-year-old female who has a significant past medical history of chronic tobacco use who presents to ED at the referral of cardiology. 6 weeks of worsened GEORGE and lower extremity edema outpatient echo: EF < 20%, severe diffuse left ventricular hypokinesis, right ventricular cavity moderately dilated, left atrium moderately enlarged, moderate MR, severe TR, dilated IVC with reduced collapsibility Acute HFrEF HTN Elevated Troponin - demand ischemia admit to PCU consult cardiology give lasix 40mg IV x 1 now and then daily daily weights, strict intake/output FR to 1800ml will hold off on further guideline directed therapies for acute HFrEF at this time until volume status more optimized currently tachycardiac which likely is physiologic in setting of reduced EF TSH obtain in OP setting elevated at 8, but free T4 normal a1c 6.3, lipid panel trig 122, total chol 149, LDL 96 NPO in a.m. in event procedure warranted 05/07 diuresing well on Lasix IV, Spironolactone Entresto , Jardiance started for Cardiac cath tomorrow 05/08 s/p Cardiac Cath continue present regimen monitor Pre diabetes a1c in outpatient setting 6.3 diet/lifestyle modifications Chronic tobacco abuse last smoked yesterday, hoping to abstain continue to encourage cessation DVT ppx: Lovenox FULL CODE PCP: Nilton Tee - pt has not yet established care with her so she will need close f/u as outpatient Dispo: anticipate d/c home when medically stable Admission and Anticipated Discharge Date Admission Date: May 05, 2023 Subjective ff up for CHF etc seen resting in bed, comfortable s/p cardiac cath states she feels fine overall no chest pain, dyspnea, palpitations, dizziness no other new symptoms Review of Systems Review of Systems: all noted and negative except for above Physical Exam Physical Exam: General- oriented x 3, not in distress, speaks in sentences with no effort or accessory muscle use Eyes- anicteric Neck- no JVD Lungs- clear breath sounds bilaterally, no rales/wheezes Heart- normal rate, regular rhythm; no murmurs Abdomen- normal bowel sounds, nondistended, soft, nontender Extremities- no pretibial edema, no calf tenderness Neuro- alert, oriented x 3; no gross focal neurologic deficits Skin- warm & dry Results & Data Results & Data Vital Signs (Past 12 Hours) Vital Signs Temp Pulse Pulse Resp BP Pulse Ox O2 Del Method 05/08/23 16:45 36.7 C 102 H 20 125/72 94 Room Air 05/08/23 15:15 86 14 117/82 95 Room Air 05/08/23 15:10 88 14 121/82 95 Room Air 05/08/23 15:00 88 14 120/88 95 Room Air 05/08/23 14:55 84 14 112/74 95 Room Air 05/08/23 14:50 85 14 120/74 95 Room Air 05/08/23 13:09 36.8 C 93 H 18 128/93 98 Room Air 05/08/23 11:00 36.3 C L 92 H 19 118/84 94 Room Air 05/08/23 07:42 36.3 C L 105 H 20 110/76 95 Room Air 05/08/23 07:31 96 H 05/08/23 07:30 Room Air all noted and reviewed including below
[2023-05-08] MEDS: ENOXAPARIN INJ 40 MG/0.4 ML SYR SQ SCH ×2 (19:56→20:22)
[2023-05-09 08:21] LABS: Calcium 9.8 mg/dl (8.6-10.3); Potassium 3.8 mmol/L (3.5-5.1)
[2023-05-09 08:27] LABS: BUN Creatinine Ratio 8.5 (10-20); Creatinine Clr Calc Pharmacy 36.4 ml/min; Est GFR (Non-African American) 46.6 ml/min
[2023-05-09] MEDS: VALSARTAN/SACUBITRIL 26/24MG TAB PO SCH (09:16)
[2023-05-09] MEDS: EMPAGLIFLOZIN 10 MG TAB PO SCH (09:16)
[2023-05-09] MEDS: SPIRONOLACTONE 25 MG TAB PO SCH (09:16)
[2023-05-09] MEDS: PANTOprazole 40 MG TAB PO SCH (09:17)
[2023-05-09] MEDS: FUROSEMIDE 40 MG/4 ML VIAL IV SCH (10:05)
--- NOTE | 2023-05-09 12:51 | Cardiology Progress Note ---
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 1. 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 Elevated intracardiac filling pressures on RHC -Norm CI likely overestimated as Arterial Saturation was recorded as 88%. Also unclear if Hgb is 12.6 or 15 (which was the POCT) -In either case, she is doing well and able to ambulate the halls. -Euvolemic today -Stop IV lasix -DC home on oral diuretic; Torsemide 40mg qday -check BMP in 1 week -Continue Entresto 24/26mg bid, Jardiance 10mg qday, Aldactone 25mg qday -Add metoprolol 25mg qday NOW. If she tolerates this, plan for DC home this afternoon. 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 Review of Systems Review of Systems: A comprehensive review of systems is otherwise negative unless noted above. Physical Exam Physical Exam: Thin woman - breathing improved JVP 12 cmH20 S1S2 2/6 systolic murmur CTA B No LE edema. Constitutional: well nourished; no acute distress Respiratory: no respiratory distress, no labored breathing and no retractions Auscultation: + rales (Left base); no wheezes Cardiovascular: Rate/Rhythm: regular rate and regular rhythm Heart Sounds: normal S1 and normal S2; no murmur Extremities: no edema Gastrointestinal (Abdomen): Inspection/Auscultation: normal bowel sounds; abdomen not distended Percussion/Palpation: abdomen soft; abdomen nontender, no guarding and abdomen not rigid Neurologic: CN's II-XI intact bilaterally and moves all extremities Results & Data Vital Signs (Past 12 Hours) Vital Signs Temp Pulse Pulse Resp BP Pulse Ox O2 Del Method 05/09/23 11:35 36.6 C 99 H 19 97/72 L 95 Room Air 05/09/23 07:45 Room Air 05/09/23 07:32 36.7 C 99 H 19 107/74 98 Room Air 05/09/23 07:09 106 H 05/09/23 03:32 37 C 99 H 17 100/69 90 Room Air Results BMP Results: Sodium 136 mmol/L (136-145) 05/09/23 Potassium 3.8 mmol/L (3.5-5.1) 05/09/23 Chloride 93 mmol/L (98-107) L 05/09/23 Carbon Dioxide 36 mmol/L (21-32) H 05/09/23 Anion Gap 7 (3-11) 05/09/23 BUN 11 mg/dl (6-23) 05/09/23 Creatinine 1.29 mg/dl (0.6-1.2) H 05/09/23 Glucose 114 mg/dl (70-99(Fasting)) H 05/09/23 Results CBC w Diff Results: RBC 3.89 M/uL (4.20-5.40) L 05/06/23 WBC 7.18 K/ul (4.8-10.8) 05/06/23 Hgb 12.6 g/dl (12.0-16.0) 05/06/23 Hct 37.7 % (37.0-47.0) 05/06/23 MCV 96.9 fL (80.0-100.0) 05/06/23 MCH 32.4 pg (25.0-34.0) 05/06/23 MCHC 33.4 g/dL (32.0-36.0) 05/06/23 RDW Standard Deviation 55.1 fL (36.4-46.3) H 05/06/23 RDW Coefficient of Variation 15.6 % (11.5-14.5) H 05/06/23 Plt Count 218 K/uL (130-400) 05/06/23 MPV 11.1 fL (9.4-12.4) 05/06/23 Neutrophils (%) (Auto) 58.2 % 05/05/23 Lymphocytes (%) (Auto) 33.7 % 05/05/23 Monocytes # (Auto) 0.55 K/uL (0.11-0.59) 05/05/23 Eosinophils # (Auto) 0.10 K/uL (0.00-0.50) 05/05/23 Immature Granulocyte % (Auto) 0.2 % 05/05/23 Neutrophils # (Auto) 5.22 K/uL (1.40-6.50) 05/05/23 Lymphocytes # (Auto) 3.03 K/uL (1.20-3.40) 05/05/23 Monocytes # (Auto) 0.55 K/uL (0.11-0.59) 05/05/23 Eosinophils # (Auto) 0.10 K/uL (0.00-0.50) 05/05/23 Basophils # (Auto) 0.06 K/uL (0.00-0.20) 05/05/23 Immature Granulocyte # (Auto) 0.02 K/uL (0.01-0.20) 3 Updated Medication List Medication Instructions Recorded Confirmed Type albuterol sulfate 90 mcg/actuation 2 puff inhalation Q6H PRN SOB 05/05/23 05/05/23 History aerosol inhaler benzonatate 200 mg capsule 200 mg PO TID PRN Cough 05/05/23 05/05/23 History furosemide 20 mg tablet 20 mg PO QAM 05/05/23 05/05/23 History
[2023-05-09] MEDS: METOPROLOL SUCC 25MG EXT REL TAB PO SCH ×2 (13:40→13:52)
--- NOTE | 2023-05-09 22:57 | Hospitalist Progress Note ---
Date of Service May 09, 2023 Assessment & Plan (1) Acute HFrEF (heart failure with reduced ejection fraction): (2) Tobacco abuse disorder: (3) HTN (hypertension): (4) Hypokalemia: Plan per previous attending notes with addendum: This is a 53-year-old female who has a significant past medical history of chronic tobacco use who presents to ED at the referral of cardiology. 6 weeks of worsened GEORGE and lower extremity edema outpatient echo: EF < 20%, severe diffuse left ventricular hypokinesis, right ventricular cavity moderately dilated, left atrium moderately enlarged, moderate MR, severe TR, dilated IVC with reduced collapsibility Acute HFrEF HTN Elevated Troponin - demand ischemia admit to PCU consult cardiology give lasix 40mg IV x 1 now and then daily daily weights, strict intake/output FR to 1800ml will hold off on further guideline directed therapies for acute HFrEF at this time until volume status more optimized currently tachycardiac which likely is physiologic in setting of reduced EF TSH obtain in OP setting elevated at 8, but free T4 normal a1c 6.3, lipid panel trig 122, total chol 149, LDL 96 NPO in a.m. in event procedure warranted 05/07 diuresing well on Lasix IV, Spironolactone Entresto , Jardiance started for Cardiac cath tomorrow 05/08 s/p Cardiac Cath continue present regimen monitor 05/09 stable for discharge discharge meds: Entresto Jardiance Torsemide Aldactone Toprol XL Pre diabetes a1c in outpatient setting 6.3 diet/lifestyle modifications Chronic tobacco abuse last smoked yesterday, hoping to abstain continue to encourage cessation DVT ppx: Lovenox FULL CODE PCP: Nilton Tee - pt has not yet established care with her so she will need close f/u as outpatient Dispo: dc home ff up with PCP in 1 week ff up with Cardiology in 1 week Admission and Anticipated Discharge Date Admission Date: May 05, 2023 Subjective ff up for CHF, etc seen resting in bed, sitting up in good spirits states she feels fine overall no chest pain, dyspnea, palpitations, dizziness ambulating with no problems no other symptoms Review of Systems Review of Systems: all noted and negative except for above Physical Exam Physical Exam: General- oriented x 3, not in distress, speaks in sentences with no effort or accessory muscle use Eyes- anicteric Neck- no JVD Lungs- clear breath sounds bilaterally,no crackles, no wheezing Heart- normal rate, regular rhythm; no murmurs Abdomen- normal bowel sounds, nondistended, soft, nontender Extremities- no pretibial edema, no calf tenderness Neuro- alert, oriented x 3; no gross focal neurologic deficits Skin- warm & dry Results & Data Results & Data Vital Signs (Past 12 Hours) Vital Signs Temp Pulse Pulse Resp BP Pulse Ox O2 Del Method 05/09/23 15:19 36.6 C 99 H 19 94/67 L 95 05/09/23 15:17 95 H 05/09/23 13:41 94/67 L 05/09/23 11:35 36.6 C 99 H 19 97/72 L 95 Room Air all noted and reviewed including below
--- NOTE | 2023-05-09 23:11 | Discharge Summary ---
Discharge Summary Date of Service May 09, 2023 delayed entry date of service noted above Notes For Next Care Provider Medication Changes From Visit Jardiance 10 mg p.o. daily Entresto 1 tablet twice daily Metoprolol succinate 25 mg daily Torsemide 40 mg p.o. daily Spironolactone 25 mg p.o. daily Admission HPI Per Admitting Provider This is a 53-year-old female who has a significant past medical history of chronic tobacco use who presents to ED at the referral of cardiology. Prior to her current recent medical events she has not followed with a primary care provider. She has smoked on and off for the last 30 years. She also drinks alcohol approximately 2 nights weekly. She denies any illicit drug use. She was seen and evaluated in the ED on 04/02/2023 secondary to cough, chest discomfort and shortness of breath. Patient had chest x-ray and blood work performed but left AGAINST MEDICAL ADVICE due to long wait times. During this evaluation patient had a mildly elevated troponin, chest x-ray concerning for cardiomegaly, pulmonary vascular congestion and she had a mild leukocytosis. There was also possible concern for pneumonia. ED provider contacted patient and prescribed her course of cephalosporin and doxycycline. She has completed 2 courses of antibiotics. She also was seen at [facility] ER in [place] approximately 2 weeks later. Per cardiology report records were reviewed, D- dimer was elevated and she underwent chest CT which was negative for PE but did demonstrate cardiomegaly and bilateral pleural effusions. At this point time s he was again treated with antibiotics. Patient does not provide much history as she states, "you can refer to my records I have already been over this." Per records from her cardiology visit today she has complained of shortness of breath for the last 6 weeks. She has a chronic cough and did not think anything of this due to smoking but this has also worsened. She also started coughing up blood. In the ED she also has been having increased lower extremity swelling. She denies any orthopnea, PND or weight change. She recently has been trying to limit her sodium intake. She denies any prior history of any cardiac disease, although she was told many years ago she had high blood pressure. She has never taken any medication for this. She does monitor her blood pressure at home and typically is between 140s and 160s although she thinks her blood pressure cuff may be off. She was recently prescribed Lasix 20 mg daily prior to cardiac consultation being performed. She went for cardiology consultation today and echocardiogram was performed which revealed an LVEF of less than 20%, severe diffuse left ventricular hypokinesis, left ventricular cavity mildly dilated, left atrium moderately dilated, moderate MR and severe tricuspid regurg is present. She states ever since taking the Lasix 20 mg daily she has noted slight decrease in her leg swelling. She has not been taking any potassium with her Lasix. She denies any recent viral illness or traumatic life event. Significant other is at beside who also helps elicit hx. in ED patient was hemodynamically stable although significantly hypertensive. Initial troponin elevated at 26. She was mildly hypokalemic with potassium of 3.2. Outpatient lab work from [facility] was reviewed. BNP was 34,317, triglyceride 122, cholesterol 149, HDL 29, LDL 96, BUN 16, creatinine 1.1, A1c 6.3, TSH 8.44 with normal T4free. Her last tobacco use was yesterday. At rest she currently feels fine. She denies SOB at rest, chest pain, f/c/s, lightheaded, dizziness, n/v/d, abd pain. Admission Exam Per Admitting Provider General- oriented x 3, not in distress, speaks in sentences with no effort or accessory muscle use Eyes- anicteric Neck- no JVD Lungs- clear breath sounds bilaterally,no crackles, no wheezing Heart- normal rate, regular rhythm; no murmurs Abdomen- normal bowel sounds, nondistended, soft, nontender Extremities- no pretibial edema, no calf tenderness Neuro- alert, oriented x 3; no gross focal neurologic deficits Skin- warm & dry Principal Dx & Hospital Course #1 = Principal Diagnosis (1) Acute HFrEF (heart failure with reduced ejection fraction): (2) Tobacco abuse disorder: (3) HTN (hypertension): (4) Hypokalemia: Plan per previous attending notes with addendum: This is a 53-year-old female who has a significant past medical history of chronic tobacco use who presents to ED at the referral of cardiology. 6 weeks of worsened GEORGE and lower extremity edema outpatient echo: EF < 20%, severe diffuse left ventricular hypokinesis, right ventricular cavity moderately dilated, left atrium moderately enlarged, moderate MR, severe TR, dilated IVC with reduced collapsibility Acute heart failure with reduced ejection fraction HTN Elevated Troponin - demand ischemia Manager Lvn consulted Given IV Lasix with Aldactone Diuresed well Status post cardiac cath: Normal Coronary Arteries and Elevated Intracardiac Pressures Cleared for discharge by cardiology service Discharge medications: Jardiance 10 mg p.o. daily Entresto 1 tablet twice daily Metoprolol succinate 25 mg daily Torsemide 40 mg p.o. daily Spironolactone 25 mg p.o. daily Follow-up with cardiology service in 1 to 2 weeks Pre diabetes a1c in outpatient setting 6.3 diet/lifestyle modifications Chronic tobacco abuse Counseling done DVT ppx: Lovenox FULL CODE PCP: Nilton Tee - pt has not yet established care with her so she will need close f/u as outpatient Dispo: dc home ff up with PCP in 1 week ff up with Cardiology in 1 week Discharge Exam General- oriented x 3, not in distress, speaks in sentences with no effort or accessory muscle use Eyes- anicteric Neck- no JVD Lungs- clear breath sounds bilaterally,no crackles, no wheezing Heart- normal rate, regular rhythm; no murmurs Abdomen- normal bowel sounds, nondistended, soft, nontender Extremities- no pretibial edema, no calf tenderness Neuro- alert, oriented x 3; no gross focal neurologic deficits Skin- warm & dry Updated Medication List Medication Instructions Recorded Confirmed Type albuterol sulfate 90 mcg/actuation 2 puff inhalation Q6H PRN SOB 05/05/23 05/05/23 History aerosol inhaler benzonatate 200 mg capsule 200 mg PO TID PRN Cough 05/05/23 05/05/23 History empagliflozin 10 mg tablet 10 mg PO DAILY 30 days #30 tabs 05/09/23 Rx (Jardiance) metoprolol succinate 25 mg 25 mg PO QAM 30 days #30 tabs 05/09/23 Rx tablet,extended release 24 hr pantoprazole 40 mg tablet,delayed 40 mg PO DAILY 30 days #30 tabs 05/09/23 Rx release sacubitril 24 mg-valsartan 26 mg 1 tab PO BID 30 days #60 tabs 05/09/23 Rx tablet (Entresto) spironolactone 25 mg tablet 25 mg PO QAM 30 days #30 tabs 05/09/23 Rx torsemide 40 mg tablet 40 mg PO DAILY #30 tabs 05/09/23 Rx Hospital Stay Data Consultations 05/05/23 14:44 ED Decision to Admit Stat 05/05/23 14:49 Consult Cardiology Routine 05/05/23 16:12 HIM [Consult Health Information Management] Routine Procedures Performed Operation Date: 05/08/23 14:00 Actual Procedures p Cath, Right Heart with Cors - Mg Haider MD, PhD s Cineradiography w/Routine Exam - Mg Haider MD, PhD s Ultrasound Vascular Access - Mg Haider MD, PhD Diagnostic Imagining Performed 05/08/23 09:41 CL Cath Imgs for PACS use only Routine Pending Results Patient Have Any Pending Studies at Discharge: Yes Discharge Instructions Given to Patient (Per Discharging Provider) PLEASE REFER TO YOUR NEW MEDICATION LIST AND FOLLOW INSTRUCTIONS CAREFULLY. YOUR NEW MEDICATIONS INCLUDE: Entresto Aldactone Jardiance Toprol XL Protonix PLEASE CALL YOUR PRIMARY CARE PHYSICIAN OR RETURN TO THE ER IF WITH WORSENING OF SYMPTOMS, INCLUDING Shortness of breath, leg swelling, chest pain, palpitations, dizziness, etc. FOLLOW UP WITH PRIMARY CARE PHYSICIAN IN 1 WEEK. FOLLOW-UP WITH [facility] REGISTER CLERK IN 1 TO 2 WEEKS. CONTACT INFORMATION OUTLINED ABOVE. Total Time Total Time Spent Total Time Spent (In Minutes): >30 minutes
--- NOTE | 2023-05-10 12:02 | Cardiac Catheterization ---
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 Cardiac Status Clinical evaluation leading to the procedure CAD Presenation: No Sxs, No angina Anginal Classification: CCS IV (Shortness of breath) Heart Failure: NYHA Class: CCS IV Cardiogenic Shock within 24 Hours: No Cardiac Arrest within 24 Hours: No Imaging Studies Past 6 Months: Yes Coronary Anatomy Dominant: Right Left Main (% Stenosis): Normal LAD (% Stenosis): Normal D1 (% Stenosis): Normal D2 (% Stenosis): Normal D3 (% Stenosis): Normal Circumflex (% Stenosis): Normal OM1 (% Stenosis): Normal L PL1 (% Stenosis): Normal RCA (% Stenosis): Normal R PDA (% Stenosis): Normal R PL1 (% Stenosis): Normal Diagnostic Physicians Name: Mg Haider MD, PhD Closure Device Percutaneous Entry Location: Femoral Closure Device: Angio-Seal and None-Manual Hold Recommendations: Medical Therapy and/or Counseling Cardiac Cath Procedure Full Procedure Date May 08, 2023 Pre-Procedure Diagnosis Pre-Procedure Diagnosis: Cardiomyopathy AUC Score AUC Score: 07 Post-Procedure Diagnosis Post-Procedure Diagnosis: Normal Coronary Arteries and Elevated Intracardiac Pressures Procedure(s) Performed Procedure(s) Performed: Coronary Angiography, Right Heart Cath and Ultrasound Guided Vascular Access Various Exceptionalities Teacher Mg Haider MD, PhD Estimated Blood Loss Estimated Blood Loss: 10cc Medication(s) Medication(s): Fentanyl, Lidocaine 1%, Nicardipine, Nitroglycerin and Versed Summary of Findings Brief description: Patient was brought to the cardiac catheterization suite where she was shaved and prepped in a sterile fashion sedated using IV Versed and fentanyl. Soft tissues of the right wrist were anesthetized using 2 mL of 1% Xylocaine. Right radial artery was accessed using a modified Seldinger technique. However, we could not advance the wire far enough up to place the sheath. We decided to abandon radial access and proceed with femoral artery and venous access. Soft tissue the right groin were anesthetized using 10 mils 1% Xylocaine. Using the ultrasound for guidance (image saved), the right femoral artery was accessed and a 5 [place] femoral artery sheath was placed. Again, using the ultrasound for guidance, the right femoral vein was accessed and a 6 [place] venous sheath was placed. We proceeded first with coronary angiography. Left coronary angiography was performed in orthogonal views with a 5 Cuban JL 4 diagnostic catheter. Right coronary angiography was performed in orthogonal views with a 5 [place] JR4 diagnostic catheter. All diagnostic catheters were removed. We advanced the Greenway-Ericka catheter through the femoral venous sheath and then the balloon was inflated. Under fluoroscopic guidance and the Greenway-Ericka catheter was advanced through the right heart and eventually terminally placed in the "wedge position". Pulmonary capillary wedge pressure was obtained. The balloon was then deflated and pulmonary arterial pressure and oxygen saturation were measured. Catheter was pulled back on the right ventricle where right ventricular hemodynamics were measured. Finally the catheter was pulled back on the right atrium or right atrial pressure and oxygen saturation were sampled. Systemic arterial oxygen saturation was sampled from the arterial sheath. The Greenway-Ericka catheter was removed from the patient. The cardiac output was determined by the method of Norm. Limited right femoral artery angiography was performed to evaluate for closure. Findings were favorable, therefore, the femoral artery sheath was exchanged for a 6 [place] Angio-Seal closure device. This was deployed in the recommended fashion. Patient obtained immediate hemostasis and remained hemodynamically stable. The venous sheath was then removed and hemostasis obtained using manual compression. Patient was then returned to the recovery area. This ended the case. Right heart cath findings: PCWP 24 mmHg PAP 46/27 mmHg, mean 34 mmHg RVP 48/9 mmHg, RVEDP 14 mmHg RAP 12 mmHg SaO2 equals 88% PaO2 equals 58% RA O2 equals 43% Cardiac output (Norm): 4.43 L/min Cardiac index (Norm): 2.9 L/min/m PVR 2.26 Alejandro units SVR 19.64 Alejandro unit PVR 22.35 Alejandro units Coronary angiography findings: LMT-large caliber bifurcating into LAD and circumflex. No disease. LAD-large caliber and transapical. Provides a large branching first diagonal, small second diagonal, and a small to medium caliber third diagonal. No angiog raphically evident disease in the LAD or its branches. LCx-medium to large caliber and nondominant. OM1 is medium caliber, posterolateral branch is large and branching. There is no disease in the ci rcumflex or its branches. [id number] and dominant. Bifurcates distally into the PDA and posterolateral branches. There is no angiographically evident disease in the RCA or its branches. Summary: 1. No occlusive coronary artery disease 2. Elevated intracardiac pressures suggest persistent volume overload. 3. Mild pulmonary hypertension Hemodynamics Rest Ao:: 118/97 mmHg Final Ao: 129/92 mmHg LV: Not performed Recommendations Recommendations: Medical Therapy and/or Counseling Radiation Exposure (mGy) 486 mGy, fluoroscopy time 5.5 minutes Contrast (mls) 35 mL Anesthesia 2 mg IV Versed, 50 mcg IV fentanyl Procedural Complication(s) None Disposition PCU I attest to the content of the Intraoperative Record and any orders documented therein. Any exceptions are noted below. [facility] Card Cath Procedure Codes Cardiac Catheterization Procedure 1: Cardiovascular Cath Procedures: 80612 Coronaries and RHC Therapeutic Services & Ancillary Procedure 1: Cardiovascular Tx and Anc Procedures: 99247 Ultrasonic Guidance Vascular Access Moderate Sedation Procedure 1: Sedation/Anesthesia: 33453 Mod Sedation by the same physician;Init15 Min Child Age 5 & Up (118/97 mmHg, start 1414) Procedure 2: Sedation/Anesthesia: 93783 Mod Sedation by the same physician; Ea [id number] Minutes (Additional 19 minutes, and 1448) PG Care Time/CCT Total # of Minutes Spent Total Time Spent with Patient: Total time spent is greater than 50% in coordination of care (as documented) at patient's floor/unit and/or counseling patient:
[2023-05-11 13:31] LABS: iSTAT Arterial Blood Gas HCO3 31 meg/L (19-24); iSTAT Arterial Blood Gas pCO2 40 mmHg (35-46); iSTAT Arterial Blood Gas pO2 51 mmHg (80-95); iSTAT Carbon Dioxide 32 mmol/L (24-31); iSTAT Hematocrit 45 % (37-47); iSTAT Hemoglobin 15.3 g/dl (12.0-16.0); iSTAT Potassium 3.5 mmol/L (3.3-5.0); iSTAT Sodium 140 mmol/L (135-144)
== END 2023-05-09 15:35 | disposition home or self-care (01) | DRG 286 ==
LOC: ED 13:12 → 2S 14:49 → SUATTDRO 14:49 → 2S 16:55
DX: I11.0 Hypertensive heart disease with heart failure; R73.03 Prediabetes; Z79.899 Other long term (current) drug therapy; I24.89 Other forms of acute ischemic heart disease; Z88.2 Allergy status to sulfonamides; E87.6 Hypokalemia; Z83.3 Family history of diabetes mellitus; I42.9 Cardiomyopathy, unspecified; I27.20 Pulmonary hypertension, unspecified; I50.21 Acute systolic (congestive) heart failure; Z82.49 Family history of ischemic heart disease and other diseases of the circulatory system; F17.290 Nicotine dependence, other tobacco product, uncomplicated